=== PATIENT | female | born 1940 | race Caucasian/White ===

== ENCOUNTER 2023-07-07 06:06 | Day surgery (SDC) | payer MEDICARE, OTHER, SELFPAY ==
[2023-07-07] VITALS (9 sets, daily range): BP systolic 102–131; BP diastolic 48–80
[2023-07-07] MEDS: NORMOSOL-R 1000 IV (06:39)
[2023-07-07] MEDS: VANCOCIN 200 IV (06:39)
[2023-07-07] MEDS: TYLENOL 1000 MG PO (06:40)
--- NOTE | 2023-07-07 07:00 | HP.FOC2 ---
Focused History & Physical
Chief Complaint
HPI:
Chief Complaint: Ventral hernia
HPI / Indication for Planned Procedure: 83-year-old female with a history of a ventral hernia from which she has had a few events of temporary incarceration and obstruction involving small bowel. Her hernias were able to be reduced at bedside. She
presents today for scheduled operative correction due to these events.
Past medical history notable for CHF, CAD with multiple cardiac stents and recent history of breast cancer status postlumpectomy and chemoradiation therapy.
Relevant Past Medical History: Other (CHF with EF 25 to 30%, CAD with cardiac stents, hypertension, history of breast cancer)
Relevant Social History: Negative
Relevant Family History: Negative
Relevant Past Surgical History: Positive for (Open cholecystectomy, tubal ligation with hysterectomy, cardiac stents, pacemaker)
Review of Systems
Review of Pertinent Systems: All Systems Negative
Medication
See Medication form for detailed medications: Yes
Medication List (including Herbals & OTC):
latanoprost 0.005 % eye drops 1 drp LEFT EYE HS Eye condition 06/04/22
furosemide 20 mg tablet 20 mg PO DAILY Fluid retention/Swelling 30 days #30 tabs 06/07/22
aspirin 81 mg chewable tablet 81 mg PO DAILY #1 tab 09/10/22
lisinopril 5 mg tablet 5 mg PO DAILY #90 tabs 09/10/22
Lactobacillus acidophilus 10 billion cell capsule (Probiotic) 10,000 mmu cells PO ONCE Supplement 04/08/23
dorzolamide 2 % eye drops 1 drp ophthalmic (eye) BID Eye Condition 04/08/23
spironolactone 25 mg tablet (Aldactone) 12.5 mg PO DAILY Heart Disease/Condition 04/08/23
calcium carbonate 600 mg calcium (1,500 mg) tablet (Calcium) 600 mg PO DAILY 07/05/23
metoprolol succinate 50 mg capsule sprinkle, ext. release 24 hr 50 mg PO DAILY 07/05/23
Medications Reviewed: Yes
Allergies and Reactions
Patient has Allergies: Yes
Noted Allergies and Reactions:
Allergy/AdvReac Type Severity Reaction Status Date / Time
amoxicillin [From Augmentin] Allergy diarrhea Verified 07/07/23 06:21
clavulanic acid Allergy diarrhea Verified 07/07/23 06:21
[From Augmentin]
cefaclor [From Ceclor] AdvReac diarrhea Verified 07/07/23 06:21
Pertinent Physical Exam
All Other Systems: Negative
Head/Neck: Normal
Lungs: Normal
Heart: Normal
Abdomen: Other (Suprapubic ventral hernia)
Extremities: Normal
Neurological: Normal
Diagnosis / Assessment
83-year-old female presenting for operative correction symptomatic ventral hernia
Plan / Procedure
Open ventral hernia pair with mesh
Anesthesia/Sedation to be done by Anesthesia Provider: Yes
--- NOTE | 2023-07-07 07:05 | W.SUR.PREOP ---
Pre-Operative Surgical Note
-
I have examined this patient prior to the performance of the scheduled procedure.
The patient's condition is unchanged from the time of the current History and
Physical and the patient is able to undergo the scheduled procedure.
--- NOTE | 2023-07-07 08:11 | SUR.OPER ---
PATIENT SUPINE, ARMS EXTENDED AND SECURED ON PADDED ARM BOARDS, SACRAL PAD IN PLACE, HEAD ON FOAM HEADREST WITH FOLDED BLANKET BENEATH FOR ADDITIONAL HEIGHT.
--- NOTE | 2023-07-07 09:20 | W.IMMPOSTOP ---
Addendum entered and electronically signed by Francisco Javier Lopez MD 07/07/23 09:57:
#[id number]
Original Note:
Surgical Immed Post Op Note
-
Primary Surgeon: John
Assisting Surgeon: Geovany ALVAREZ
Pre-op Diagnosis: ventral hernia
Post-op Diagnosis: Ventral and umbilical hernia 4.5cm
Procedure Performed: open VH/[facility] repair with mesh; ventralex ST 8cm round
Anesthesia Type: LMA + 1%lido and 0.25% Marcaine
Specimen / Cultures: none
Estimated Blood Loss: 10mL
Complications: none immediate
Operative Findings: ventral hernia 2.5cm and umbilical hernia 1.5cm -> total length including fascial bridge 4.5cm. ventralex ST 8cm preperitoneal underlay mesh repair with sutured closure of each fascial defect separately.
[2023-07-07] MEDS: ZOFRAN 4 MG IV (09:36)
[2023-07-07] MEDS: COMPAZINE 5 MG IV (09:46)
== END 2023-07-07 11:45 | disposition home or self-care (01) ==
LOC: SDS 06:06
PROVIDERS: ATTENDING PHYSICIAN Surgery
DX: K43.9 Ventral hernia without obstruction or gangrene (principal); K42.9 Umbilical hernia without obstruction or gangrene
CPT/HCPCS: 49591; C1781

== ENCOUNTER → 2023-07-24 08:08 | Outpatient (REF) | payer MEDICARE, OTHER, SELFPAY | LOC: DHCBS MAIN 08:08 | PROVIDERS: ATTENDING PHYSICIAN Internal Medicine Cardiovascular Disease; FAMILY PHYSICIAN Internal Medicine | DX: I50.21 Acute systolic (congestive) heart failure (principal) | CPT/HCPCS: 93306 ==